=== PATIENT | male | born 1990 | race African-American/Black ===

== ENCOUNTER 2016-07-21 13:28 | Emergency (ER) | payer OTHER ==
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
== END 2016-07-21 15:21 | disposition home or self-care (01) ==
LOC: CED 13:28
DX: S09.90XA Unspecified injury of head, initial encounter (principal); S16.1XXA Strain of muscle, fascia and tendon at neck level, initial encounter; V49.49XA Driver injured in collision with other motor vehicles in traffic accident, initial encounter; Y92.410 Unspecified street and highway as the place of occurrence of the external cause
CPT/HCPCS: 70450; 72040; 99284